=== PATIENT | male | born 1985 | race Caucasian/White ===

== ENCOUNTER → 2019-09-02 16:55 | Outpatient (BNVA) | payer SELFPAY | PROVIDERS: Family Provider Nurse Practitioner Family; PCP Nurse Practitioner Family; Visit Provider Nurse Practitioner | DX: Z13.6 Encounter for screening for cardiovascular disorders (principal); Z79.899 Other long term (current) drug therapy; R39.9 Unspecified symptoms and signs involving the genitourinary system; R53.83 Other fatigue; E55.9 Vitamin D deficiency, unspecified; B37.2 Candidiasis of skin and nail; N39.43 Post-void dribbling; R39.11 Hesitancy of micturition; N40.0 Benign prostatic hyperplasia without lower urinary tract symptoms | CPT/HCPCS: 36415; 80061; 81001; 83036; 84153 ==

== ENCOUNTER → 2019-09-08 09:38 | Outpatient (BNVA) | payer SELFPAY | PROVIDERS: Family Provider Nurse Practitioner Family; PCP Nurse Practitioner Family; Visit Provider Nurse Practitioner | DX: Z79.899 Other long term (current) drug therapy (principal); R39.9 Unspecified symptoms and signs involving the genitourinary system; Z13.6 Encounter for screening for cardiovascular disorders; R53.83 Other fatigue; E55.9 Vitamin D deficiency, unspecified; B37.2 Candidiasis of skin and nail; N39.43 Post-void dribbling; R39.11 Hesitancy of micturition; N40.0 Benign prostatic hyperplasia without lower urinary tract symptoms | CPT/HCPCS: 80053; 82306; 84443; 85025 ==

== ENCOUNTER → 2019-09-19 08:48 | Outpatient (BNVA) | payer SELFPAY | PROVIDERS: Family Provider Nurse Practitioner Family; PCP Nurse Practitioner Family; Visit Provider Nurse Practitioner | DX: J01.90 Acute sinusitis, unspecified (principal); J06.9 Acute upper respiratory infection, unspecified | CPT/HCPCS: 87804; 87880 ==

== ENCOUNTER → 2019-10-12 13:26 | Outpatient (BNVA) | payer SELFPAY | PROVIDERS: Family Provider Nurse Practitioner Family; PCP Nurse Practitioner Family; Visit Provider Nurse Practitioner | DX: J01.90 Acute sinusitis, unspecified (principal); J01.41 Acute recurrent pansinusitis; R35.0 Frequency of micturition | CPT/HCPCS: 81003 ==

== ENCOUNTER 2020-02-14 13:05 | Outpatient (CLI) | payer SELFPAY ==
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
--- NOTE | 2020-02-14 13:13 | USCV_ITS ---
Dwain, Bobby Age: 34 Gender: M : 1985 Exam Date: 02/14/2020 13:18 Ordering Phys: NO Maldonado APRN Technologist: Saray Khan Exam Location: [facility] [place] Indication: SWELLING HISTORY: Lower extremity swelling. PROCEDURES: Venous duplex imaging was performed in only the right lower extremity. The following venous structures were evaluated: common femoral vein, profunda vein, proximal portion of the greater saphenous vein, superficial femoral vein, and the popliteal vein. In addition, the posterior tibial and peroneal trunk were evaluated. Serial compression, augmentation maneuvers, and spectral Doppler flow evaluation were performed. FINDINGS: Normal 2-D Doppler and augmentation and compressibility throughout the lower extremity venous structures. Additional imaging through the proximal calf veins also reveals no thrombus. Limited evaluation of the greater saphenous vein is patent with no thrombus.. CONCLUSIONS No evidence of right lower extremity DVT. Sina Blevins MD (Electronically Signed) Final Date: 14 February 2020 16:38 S
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
== END 2020-02-14 13:06 | disposition home or self-care (01) ==
PROVIDERS: Family Provider Nurse Practitioner Family; PCP Nurse Practitioner Family; Visit Provider Nurse Practitioner Family
DX: S89.92XA Unspecified injury of left lower leg, initial encounter (principal); S89.91XA Unspecified injury of right lower leg, initial encounter; X58.XXXA Exposure to other specified factors, initial encounter
CPT/HCPCS: 73590; 93971

== ENCOUNTER 2020-08-06 13:43 | Outpatient (CLI) | payer SELFPAY ==
--- NOTE | 2020-08-06 15:45 | CT_ITS ---
WS: [id number] CT SINUSES TECHNIQUE: Noncontrast CT of the paranasal sinuses with coronal and sagittal reformatted images. CLINICAL INFORMATION: chronic sinusitis COMPARISON: None. DLP: 354.[address] scans at [facility] use at least one of these dose optimization techniques: automat ed exposure control; mA and/or kV adjustment per patient size (includes targeted exams where dose is matched to clinical indication); or iterative reconstruction. FINDINGS: Mild right to left nasal septal deviation. This measures 2-3 mm. Leftward directed septal spurring. R ight kristin bullosa. Small bilateral Brittany cells or greater than left. Narrowing of the ostiomeatal units bilaterally with mild mucosal thickening. Trace mucosal thickening in the maxillary sinuses. Mi ld mucosal thickening in the ethmoid air cells and frontal sinuses. Mastoid air cells are well aerated. Normal posterior nasopharynx. Partially visualized intracranial c ontents appear unremarkable. CT/CT sinus wo con* [id number] IMPRESSION: 1. Mild right to left nasal septal deviation measuring 2-3 mm with leftward di rected spur. 2. Right kristin bullosa. 3. Mild narrowing of the ostiomeatal units bilaterally right greater than left . Mild mucosal thickening in the ethmoid air cells. Paranasal sinuses are other yeboah well aerated. 4. Mastoid air cells are well aerated.
== END 2020-08-06 13:44 | disposition home or self-care (01) ==
LOC: RADWPI 13:48
PROVIDERS: PCP Nurse Practitioner Family; Visit Provider Otolaryngology
DX: J32.9 Chronic sinusitis, unspecified (principal); J34.2 Deviated nasal septum
CPT/HCPCS: 70486

== ENCOUNTER → 2021-04-26 14:46 | Outpatient (BNVA) | payer SELFPAY | PROVIDERS: PCP Nurse Practitioner Family; Visit Provider Nurse Practitioner Family | DX: M25.552 Pain in left hip (principal) | CPT/HCPCS: 73502 ==

== ENCOUNTER 2021-05-01 10:27 | Outpatient (CLI) | payer SELFPAY ==
--- NOTE | 2021-05-01 10:30 | XR_ITS ---
WS: [id number] XR lumbar spine 6V w f/e [id number] REASON FOR EXAM: M25.552 - Pain in left hip FINDINGS: No significant lumbar vertebral body compression deformity or focal lesion. Mild narrowing of the intervertebral disc spaces at L1-L2, L2-L3, and L5-S1. There is 8 to 9 mm of anterolisthesis of L5 on S1 which is secondary to bilateral spondylolysis at L5 . The listhesis does not appear to change significantly during the flexion and extension of the lumbar spine. XR/XR lumbar spine 6V w f/e [id number] IMPRESSION: Degenerative disc disease as above. Spondylolisthesis and spondylolysis as above.
== END 2021-05-01 10:28 | disposition home or self-care (01) ==
PROVIDERS: PCP Nurse Practitioner Family; Visit Provider Nurse Practitioner Family
DX: M25.552 Pain in left hip (principal); M54.5 Low back pain; M51.36 Other intervertebral disc degeneration, lumbar region; M43.16 Spondylolisthesis, lumbar region; M47.816 Spondylosis without myelopathy or radiculopathy, lumbar region
CPT/HCPCS: 72114

== ENCOUNTER → 2021-05-20 14:04 | Outpatient (BNVA) | payer SELFPAY | PROVIDERS: PCP Nurse Practitioner Family; Referring Provider Nurse Practitioner Family; Visit Provider Specialist | DX: M25.551 Pain in right hip (principal); M16.11 Unilateral primary osteoarthritis, right hip | CPT/HCPCS: 73502 ==

== ENCOUNTER → 2022-08-22 13:22 | Outpatient (BNVA) | payer SELFPAY | PROVIDERS: PCP Nurse Practitioner; Visit Provider Nurse Practitioner | DX: M79.672 Pain in left foot (principal) | CPT/HCPCS: 73630 ==

== ENCOUNTER → 2023-01-06 08:50 | Outpatient (BNVA) | payer OTHER, SELFPAY | PROVIDERS: PCP Nurse Practitioner; Visit Provider Nurse Practitioner | DX: S52.611A Displaced fracture of right ulna styloid process, initial encounter for closed fracture (principal); X58.XXXA Exposure to other specified factors, initial encounter | CPT/HCPCS: 73110 ==

== ENCOUNTER 2023-01-08 11:37 | Outpatient (CLI) | payer OTHER, SELFPAY | END 2023-01-08 11:38 | disposition home or self-care (01) | PROVIDERS: PCP Nurse Practitioner; Visit Provider Specialist | DX: Z46.89 Encounter for fitting and adjustment of other specified devices (principal); M25.531 Pain in right wrist | CPT/HCPCS: 97760; L3908 ==

== ENCOUNTER 2023-01-09 10:48 | Day surgery (SDC) | payer OTHER, SELFPAY ==
[2023-01-08 16:53] VITALS: BMI 26.2
[2023-01-09] VITALS (10 sets, daily range): BP systolic 96–140; BP diastolic 65–95; PULSE 68–77; RESP 10–17; TEMP 36.1–36.9; O2SAT 92–98
[2023-01-09] MEDS: sodium chloride 0.9% 1,000 ML 30 ML IV (11:14)
[2023-01-09] MEDS: CELEcoxib 200 mg Capsule 400 MG PO (11:16)
[2023-01-09] MEDS: gabapentin 300 mg Capsule PO (11:16)
[2023-01-09] MEDS: acetaminophen 1,000 MG/100 ML PIGGYBACK 400 MG IV (11:17)
--- NOTE | 2023-01-09 13:44 | P.HPUD_ITS ---
Surgery/Procedure H&P Update DATE OF PROCEDURE: January 09, 2023 DATE H&P PERFORMED: 01/08/23 H&P UPDATE INFORMATION: I have reviewed H&P completed within last 30 days, I have examined patient prior to procedure, No changes to prior documentation and H[place] is in [facility] [place] indicated PREOP DIAGNOSIS: Open fracture distal end of right ulna PLANNED PROCEDURE: Operation Date: 01/09/23 12:55 Proposed Procedures p : Irrigation and Debridement right wrist with possible bone excision S52.501A,S561.509A(Right) - Shonda Naqvi MD s possible bone excision(Right) - Shonda Naqvi MD Related Problem List Diagnoses (1) Open fracture of distal end of right ulna: Qualifiers: Encounter type: initial encounter Fracture morphology: other fracture
[2023-01-09] MEDS: ceFAZolin 2,000 MG in sodium chloride 0.9% (plus) 50 ML 100 MG IV (13:52)
--- NOTE | 2023-01-09 14:08 | ANES.PREANE2 ---
Pre-Anesthetic Assessment Height/Weight: Height 1.78 m Weight 83.007 kg Temp Pulse Resp BP Pulse Ox O2 Del Method 98.5 F 68 17 140/86 98 Room Air 01/09/23 11:03 01/09/23 11:03 01/09/23 11:03 01/09/23 11:03 01/09/23 11:03 01/09/23 11:04 Preop Diagnosis: Open fracture distal end of right ulna Operation Date: 01/09/23 12:55 Proposed Procedures p : Irrigation and Debridement right wrist with possible bone excision S52.501A,S561.509A(Right) - Shonda Naqvi MD s possible bone excision(Right) - Shonda Naqvi MD Familial anesthetic complications: none Was Beta Marisa taken within 24 hours: N/A Was Clonidine taken within 24 hours: N/A Last intake: Intake Last Liquid Date 01/08/23 Last Liquid Time 21:30 Last Solid Date 01/08/23 Last Solid Time 21:30 Social Tobacco and No alcohol Exam alert, oriented x 3 and regular rate & rhythm Airway Submandibular: within normal limits Cervical ROM: within normal limits Mallampati: Class II Dentition: chipped Pulmonary Chronic Obstructive Pulmonary Disease Anesthetic Plan ASA status: 2 Anesthesia: General Medications/Allergies Home Medications Medication Instructions Recorded Confirmed Last Taken Type COCK UP SPLINT #1 ea 01/08/23 01/08/23 Unknown Rx Allergies Allergy/AdvReac Type Severity Reaction Status Date / Time No Known Allergies Allergy Verified 01/08/23 16:52 Current Medications Generic Name Dose Route Start Last Admin Trade Name Freq PRN Reason Stop Dose Admin Sodium Chloride 1,000 mls @ 30 mls/hr 01/09/23 11:00 01/09/23 11:14 Sodium Chloride 0.9% IV 01/10/23 10:59 30 mls/hr .Q24H RILEY Administration PFSH Anesthesia Medical History Cellulitis, leg Chronic sinusitis Environmental and seasonal allergies Infected dental caries Left hip pain Medication management Medication management Shoulder pain Sinusitis Spastic dislocation of left hip Traumatic leg injury Social History Smoking and tobacco status: former smoker Second hand smoke exposure: No Smoking risk assessment/counseling performed?: No Alcohol intake: never Desire information about alcohol rehabilitation?: No Counseling given: No Data Anesthesia Cardiac Studies: No Data to Display
[2023-01-09] MEDS: ceFAZolin 1,000 mg SDV 3000 MG IRRIGATION (14:42)
[2023-01-09] MEDS: silvasorb gel 44.4 mL 1 APPLIC TOPICAL (14:56)
--- NOTE | 2023-01-09 15:16 | ANE.PACU2 ---
Inpatient post-anesthesia follow up: Airway intact: Yes Vital signs: Temperature 97 F Pulse Rate 74 Respiratory Rate 16 Blood Pressure 114/73 Pulse Oximetry 98 Oxygen Delivery Me thod Simple Mask Oxygen Flow Rate 8 Fraction of Inspir ed Oxygen Hydration adequate: Yes Nausea and vomiting: No Pain level: 3 Mental status: Baseline
--- NOTE | 2023-01-09 15:16 | PM.OP ---
Operative Report Date of procedure: January 09, 2023 Pre-op diagnosis: Open fracture right distal ulna Post-op diagnosis: Open fracture right distal ulna Post-op findings: Evidence of inside out type open distal ulna fracture Procedure done: Irrigation and debridement right open distal ulna fracture with excision of bone Specimens removed/disposition: Bone, cultured and sent to microbiology Surgeon: Shonda Naqvi Dance Director: None Anesthesia: General (LMA, ASA 2) Estimated blood loss (mL): 10 Tourniquet time (min): 0 IV fluids (mL): 800 Urine output (mL): 0 (No Rice) Complications: None Findings: Evidence of communication between a small puncture wound in the skin which opened into a larger cavity down to the distal ulna with loose bone fragments. Condition: stable Disposition: PACU (Then return to same-day surgery for discharge to home) Brief History: This is a 37 year old male patient here today for irrigation and debridement with bone excision from open right distal ulna fracture. DOI: 01/06/2023. Patient states on 01/06/23 he was operating a saw and it kicked back a board that hit his wrist. Patient rates pain at 9/10.? He had a laceration at the time he was seen in an [facility].? He states they glued it shut after washing it out . Patient presented to my office, and there is erythema about the area of the laceration. There also was purulent fluid from under the area of glue. This fluid was minimal. Discussion was undertaken with the patient and his that we needed to proceed with irrigation and debridement with probable excision of bone fragments as this was an open fracture. It was explained to them that the risk of infection with an open fracture is improved by aggressive irrigation and debridement. Questions were answered, consents were signed, and risks and complications were discussed in detail. Procedure: The patient was brought to the operating theater. The patient had a general anesthesia per LMA, ASA 2. The patient was also given Ancef 2 g preoperatively. The arm was then prepped and draped with Betadine in usual fashion with the arm draped free. A surgical pause was performed. At the time, the surgical pause, we confirmed the site and side of surgery. We also confirmed the patient's identity, appropriate and timely administration of preoperative antibiotics and preoperative surgical markings. The glue was debrided along with a scab over the area of concern. There was a puncture wound which was probed and felt to connect to the distal ulna. An incision was then made continuing proximally and distally to this puncture wound with excision of the skin immediately in the area of the wound. We able to dissected directly down onto the distal ulnar area. Bony fragments were palpated and were very close to the area of concern of the puncture wound. 2 larger fragments were removed and a few smaller ones. These fragments were then cultured and sent for anaerobic and aerobic culture and Gram stain. The wound was then irrigated with 3 L of normal saline and an additional 3 L of normal saline with Ancef. Attention was then directed to closure. The wound was closed with mattress suture placed with 3-0 nylon interrupted. This was followed by SilvaSorb. A dressing was placed consisting of OpSite, fluff fluffs, sterile soft roll, and an Abdirahman wrap. There were no complications. Cultures were sent from the bone. The procedure was well tolerated. Plan is the patient will be discharged home with oral antibiotic therapy. Related Problem List Diagnoses (1) Open fracture of distal end of right ulna:
[2023-01-09] MEDS: fentaNYL 50 mcg/mL INJ 2mL IVP (15:20)
--- NOTE | 2023-01-09 15:45 | SUR.PHASEII ---
ROM AND SENSATION TO FINGERS OF RIGHT HAND.
[2023-01-09] MEDS: HYDROcodone-acetaminophen 5-325 mg Tablet 1 TAB PO (16:18)
== END 2023-01-09 16:30 | disposition home or self-care (01) ==
PROVIDERS: PCP Nurse Practitioner; Visit Provider Specialist
PROC: (CPT 11012; principal; 2023-01-09 12:45)
DX: S52.601B Unspecified fracture of lower end of right ulna, initial encounter for open fracture type I or II (principal); W20.8XXA Other cause of strike by thrown, projected or falling object, initial encounter; J44.9 Chronic obstructive pulmonary disease, unspecified; Z87.891 Personal history of nicotine dependence
CPT/HCPCS: 11012; 87070; 87075; 87205; J0131; J0690; J1100; J1170; J1885; J2250; J2405; J2704; J3010; J7030

== ENCOUNTER → 2023-01-22 15:40 | Outpatient (BNVA) | payer OTHER, SELFPAY | PROVIDERS: PCP Nurse Practitioner; Visit Provider Nurse Practitioner Family | DX: Z98.890 Other specified postprocedural states (principal); S52.601E Unspecified fracture of lower end of right ulna, subsequent encounter for open fracture type I or II with routine healing; X58.XXXD Exposure to other specified factors, subsequent encounter | CPT/HCPCS: 73110 ==

== ENCOUNTER → 2023-11-16 12:12 | Outpatient (BNVA) | payer SELFPAY | PROVIDERS: PCP Nurse Practitioner Family; Visit Provider Nurse Practitioner Family | DX: J30.89 Other allergic rhinitis (principal); G25.81 Restless legs syndrome | CPT/HCPCS: 80053; 80061; 81003; 82728; 83036; 83550; 83735; 84443; 85025 ==